=== PATIENT | female | born 1980 | race African-American/Black ===

== ENCOUNTER 2016-06-08 17:18 | Emergency (ER) | payer OTHER ==
[~2016-06-08] VITALS: Ht 167.6 cm; Wt 80.3 kg
[2016-06-08 18:08] LABS: ABSOLUTE BASOPHIL COUNT 0 /CUMM (0.0-0.2); ABSOLUTE EOSINOPHIL COUNT 0.1 /CUMM (0.0-0.7); ABSOLUTE GRANULOCYTE CT 4.1 /CUMM (1.4-6.5); ABSOLUTE MONOCYTE COUNT 0.4 /CUMM (0.10-0.60); BASOPHIL % 0.5 % (0.0-2.0); EOSINOPHIL % 1.4 % (0-5); GRANULOCYTE % 62.3 % (42.2-75.2); HEMATOCRIT 43.2 % (37-47); MEAN CORPUSCULAR HGB 29.2 PG (27.0-31.0); MEAN CORPUSCULAR HGB CONC 33.4 G/DL (33.0-37.0); MEAN CORPUSCULAR VOLUME 87.3 FL (81.0-99.0); MEAN PLATELET VOLUME 7.1 FL (7.4-10.4); PLATELET COUNT 361 /CUMM (130-400); RED BLOOD CELL CT 4.95 /CUMM (4.20-5.40); WHITE BLOOD CELL COUNT 6.6 /CUMM (4.8-10.8)
--- NOTE | 2016-06-08 19:16 | ED GENERAL ADULT ---
History of Present Illness General Chief Complaint: Abdominal Pain/Flank Pain Stated Complaint: "KENY BEEN HAVING STOMACH PAIN" Source: patient Exam Limitations: no limitations Vital Signs & Intake/Output Vital Signs & Intake/Output Vital Signs Date Time Temp Pulse Resp B/P Pulse O2 O2 Flow FiO2 Ox Delivery Rate 06/08 2253 97.4 72 18 117/78 99 Room Air 06/08 2145 98.5 68 18 111/70 99 Room Air 06/08 2034 97.7 85 16 131/64 100 Room Air 06/08 1752 97.8 78 20 117/81 99 Room Air Room Air ED Intake and Output 06/09 0000 06/08 1200 Intake Total Output Total Balance Patient 177 lb Weight Allergies Coded Allergies: doxycycline (Intermediate, PURPLE RASH 06/08/16) penicillin G (Intermediate, HIVES 06/08/16) Uncoded Allergies: VICODEN (Intermediate, DIZZY, LOW BP 06/08/16) Reconcile Medications Pnv With Ca,No.72/Iron/FA ( Plus Tablet) 27 MG IRON-1 MG TABLET 1 TAB PO DAILY FOR HAIR HEALTH (Reported) Thyroid (Dyess Thyroid) 15 MG TABLET 15 MG PO DAILY THYROID (Reported) Triage Note: PT TO ED WITH C/O "FOR THE PAST FEW WEEKS I HAVE BEEN HAVING RIGHT UPPER ABD PAIN, AND MY FAMILY HAS GALLBLADDER PROBLEMS", PT C/O NAUSEA AT TIMES, ALSO C/O CONSTIPATION AT TIMES, PT HAD NORMAL BM TODAY. LAST MENSES: 05/30/16. Triage Nurses Notes Reviewed? yes Onset: Abrupt Duration: hour(s): Timing: no prior history : No Patient currently breastfeeds: No HPI: 06/08/16 35-year-old female with past medical history of asthma. Presents to the emergency department with intermittent episodes of right upper quadrant abdominal pain and nausea. The onset of the symptoms were abrupt, the duration has been over the past several weeks, the severity is significant as her symptoms required her to come to the emergency department for care. She denies fever. Past History Travel History Traveled to [place] past 21 day No Medical History Any Pertinent Medical History? see below for history Neurological: migraine EENT: NONE Cardiovascular: NONE Respiratory: asthma Gastrointestinal: constipation Hepatic: NONE Renal: NONE Musculoskeletal: NONE Psychiatric: NONE Endocrine: hypothyroidism Blood Disorders: anemia Cancer(s): NONE INVESTIGATIVE ANALYST/Reproductive: NONE Surgical History Surgical History: non-contributory Psychosocial History What is your primary language Nauruan Tobacco Use: Never used ETOH Use: denies use Illicit Drug Use: denies illicit drug use Family History Hx Contributory? No Review of Systems Review of Systems Constitutional: Denies: fever. EENTM: Denies: visual changes. Respiratory: Denies: short of breath. Cardiovascular: Denies: chest pain. GI: Reports: abdominal pain, nausea. Denies: vomiting. Genitourinary: Reports: no symptoms. Musculoskeletal: Reports: no symptoms. Skin: Reports: no symptoms. Neurological/Psychological: Reports: no symptoms. Hematologic/Endocrine: Reports: no symptoms. Immunologic/Allergic: Reports: no symptoms. Physical Exam Physical Exam General Appearance: well developed/nourished, alert, awake, anxious, mild distress Head: atraumatic, normal appearance Eyes: Bilateral: normal appearance, PERRL, EOMI. Ears, Nose, Throat: normal pharynx, normal ENT inspection Neck: normal inspection, supple, full range of motion Respiratory: normal breath sounds, chest non-tender, no respiratory distress Cardiovascular: regular rate/rhythm Peripheral Pulses: 4+ radial (R), 4+ radial (L) Gastrointestinal: soft, tenderness (epigastric) Back: normal range of motion Extremities: normal range of motion, no edema Neurologic/Psych: no motor/sensory deficits, awake, alert, oriented x 3 Skin: intact, normal color, warm/dry Core Measures ACS in differential dx? No CVA/TIA Diagnosis: No Severe Sepsis Present: No Septic Shock Present: No Progress Differential Diagnoses I considered the following diagnoses in my evaluation of the patient: [ Cholelithiasis, gastroenteritis, cholecystitis, pancreatitis, , ectopic , appendicitis, gastritis, peptic ulcer disease] Plan of Care: Orders Procedure Date/time Status Add-on Test (ER Only) 06/08 2034 Active URINE 06/08 1819 Complete URINALYSIS 06/08 1752 Complete LIPASE 06/08 1752 Complete COMPREHENSIVE METABOLIC PANEL 06/08 1752 Complete CBC WITHOUT DIFFERENTIAL 06/08 1752 Complete AMYLASE 06/08 1752 Complete Laboratory Tests 06/08/16 182: Anion Gap 12, Estimated GFR > 60, BUN/Creatinine Ratio 15.6, Glucose 100 H, Calcium 9.8, Total Bilirubin 0.4, AST 21, ALT 28, Alkaline Phosphatase 73, Total Protein 7.7, Albumin 4.5, Globulin 3.2, Albumin/Globulin Ratio 1.4, Amylase 58, Lipase 102, CBC w Diff NO MAN DIFF REQ, RBC 4.95, MCV 87.3, MCH 29.2, RDW 13.0, MPV 7.1 L, Gran % 62.3, Lymphocytes % 30.1, Monocytes % 5.7, Eosinophils % 1.4, Basophils % 0.5, Absolute Granulocytes 4.1, Absolute Lymphocytes 2.0, Absolute Monocytes 0.4, Absolute Eosinophils 0.1, Absolute Basophils 0, PUBS MCHC 33.4, Urine Color YEL, Urine Clarity CLEAR, Urine pH 6.0, Ur Specific [place] 1.025, Urine Protein NEG, Urine Ketones NEG, Urine Nitrite NEG, Urine Bilirubin NEG, Urine Urobilinogen 0.2, Ur Leukocyte Esterase NEG, Ur Microscopic EXAM NOT REQUIRED, Urine Hemoglobin NEG, Urine Glucose NEG, Urine Test NEGATIVE Initial ED EKG: none Departure Departure Disposition: HOME OR SELF CARE Condition: Stable Clinical Impression Primary Impression: Abdominal pain Referrals: TAMARA ODEN,RAND GARZA (PCP/Family) Departure Forms: Customer Survey General Discharge Information Comments The patient was treated with a GI cocktail and had significant relief. Ultrasound was negative for cholelithiasis. Labs were unremarkable Appendicitis was considered however she is had the pain intermittently over the past several weeks. She says that she's been taking ibuprofen for her knee pain. I think she likely has nonsteroidal induced gastritis. She was told to return to the emergency department immediately should the pain return. She was pain free on reevaluation. Her pain was in the epigastrium and right upper quadrant only. No right lower quadrant pain. PATIENT: BENITEZ TEMPLETON PRESENT AGE: 35 PATIENT ACCOUNT NO: [id number] : 78 LOCATION: [facility] ORDERING PHYSICIAN: ALEJA ODEN SERVICE DATE: 06/08/16 EXAM TYPE: US - US-LIMITED ABDOMEN EXAMINATION: US ABDOMEN LIMITED CLINICAL INFORMATION: Left arm and hand numbness. COMPARISON: None. TECHNIQUE: Real-time imaging of the right upper quadrant abdominal viscera. FINDINGS: PANCREAS: The visualized portions of the pancreas appear unremarkable. LIVER: Unremarkable. The liver demonstrates normal size, contour and echogenicity. No focal lesion or intrahepatic biliary duct dilatation. GALLBLADDER: Unremarkable. The gallbladder is slightly contracted, without evidence of stones, sludge, polyps, wall thickening or pericholecystic fluid. COMMON BILE DUCT: Normal in caliber measuring 0.5 cm in diameter. RIGHT KIDNEY: Unremarkable. No hydronephrosis. No renal calculi or focal parenchymal lesions. The kidney measures 8.8 cm in maximum dimension. FREE FLUID: None. IMPRESSION: The gallbladder is slightly contracted. Otherwise, unremarkable right upper quadrant abdominal ultrasound. No cholelithiasis or secondary signs of acute cholecystitis. DICTATED BY: QUOC TRIVEDI MD DATE/TIME DICTATED:06/08/162099 BIO MEDICAL TECHNICIAN:OSMAN DATE/TIME TRANSCRIBED:06/08/162099 CONFIDENTIAL, DO NOT COPY WITHOUT APPROPRIATE AUTHORIZATION. <Electronically signed in Other Vendor System> SIGNED BY: QUOC TRIVEDI MD 06/08/16 6496 Critical Care Note Critical Care Note Critical Care Time: non-applicable
[2016-06-08] MEDS ORDERED: ARMOUR THYROID15 M1 PO (20:07)
[2016-06-08] MEDS ORDERED: PRENATAL PLUS1 EAC1 PO (20:07)
--- NOTE | 2016-06-08 21:19 | ULTRASOUND REPORT ---
EXAMINATION: US ABDOMEN LIMITED CLINICAL INFORMATION: Left arm and hand numbness. COMPARISON: None. TECHNIQUE: Real-time imaging of the right upper quadrant abdominal viscera. FINDINGS: PANCREAS: The visualized portions of the pancreas appear unremarkable. LIVER: Unremarkable. The liver demonstrates normal size, contour and echogenicity. No focal lesion or intrahepatic biliary duct dilatation. GALLBLADDER: Unremarkable. The gallbladder is slightly contracted, without evidence of stones, sludge, polyps, wall thickening or pericholecystic fluid. COMMON BILE DUCT: Normal in caliber measuring 0.5 cm in diameter. RIGHT KIDNEY: Unremarkable. No hydronephrosis. No renal calculi or focal parenchymal lesions. The kidney measures 8.8 cm in maximum dimension. FREE FLUID: None. IMPRESSION: The gallbladder is slightly contracted. Otherwise, unremarkable right upper quadrant abdominal ultrasound. No cholelithiasis or secondary signs of acute cholecystitis.
[2016-06-08 22:53] VITALS: BP 117/78
== END 2016-06-08 23:08 ==
LOC: ERH 17:18
PROVIDERS: Emergency Medicine
DX: R10.11 Right upper quadrant pain (principal)
CPT/HCPCS: 81003; 81025